=== PATIENT | female | born 1975 | race Caucasian/White ===

== ENCOUNTER 2018-05-24 17:52 | Emergency (ER) | payer OTHER, MEDICAID ==
[~2018-05-24] VITALS: Ht 157.5 cm; Wt 89.1 kg
[2018-05-24 18:00] VITALS: Ht 157.5 cm; Wt 89.1 kg
[2018-05-24 18:48] LABS: microscopic required? NO
[2018-05-24 19:00] LABS: BASOPHIL % 0.6 % (0-2); PLATELET COUNT 291 x10^3mcL (130-400)
[2018-05-24 19:03] LABS: urine erythrocyte NEGATIVE (NEGATIVE)
[2018-05-24 19:06] LABS: CALCIUM 8.5 mg/dL (8.5-10.1); CHLORIDE SERUM 104 mmol/L (98-107); CREATININE SERUM 0.7 mg/dL (0.6-1.0); GFR1 > 60 mL/min; GLUCOSE SERUM 95 mg/dL (74-106); POTASSIUM SERUM 3.9 mmol/L (3.5-5.1); SODIUM SERUM 135 mmol/L (136-145)
[2018-05-24 19:07] LABS: RED CELL DISTRIBUTION WIDTH 15.4 % (11.5-14.5)
[2018-05-24 19:11] LABS: ALBUMIN 3.5 g/dL (3.4-5.0); ALKALINE PHOSPHATASE 92 U/L (46-116); ALT/SGPT 25 U/L (14-59); AST/SGOT 18 U/L (15-37); BILIRUBIN TOTAL 0.2 mg/dL (0.20-1.00); LIPASE 111 IU/L (73-393); TOTAL PROTEIN, SERUM 7.5 g/dL (6.4-8.2)
[2018-05-24 22:32] VITALS: BP 153/93
== END 2018-05-24 22:32 | disposition home or self-care (01) ==
LOC: ED 17:52
PROVIDERS: Emergency Medicine
DX: S39.012A Strain of muscle, fascia and tendon of lower back, initial encounter (principal); D50.9 Iron deficiency anemia, unspecified; K21.9 Gastro-esophageal reflux disease without esophagitis; Z88.8 Allergy status to other drugs, medicaments and biological substances; X58.XXXA Exposure to other specified factors, initial encounter; Y93.89 Activity, other specified; Y92.89 Other specified places as the place of occurrence of the external cause; Y99.8 Other external cause status
CPT/HCPCS: 36415; J1885; Q0162